=== PATIENT | male | born 1985 | race Caucasian/White ===

== ENCOUNTER 2019-02-06 19:21 | Outpatient (REF) | payer MEDICAID, SELFPAY ==
[2019-02-12 13:37] LABS: Cocaine Negative ng/mL (Cutoff: 50)
== END 2019-02-06 19:41 ==
LOC: NCHCN 19:21
PROVIDERS: PCP Nurse Practitioner Adult Health; Visit Provider Family Medicine
DX: F11.20 Opioid dependence, uncomplicated (principal)
CPT/HCPCS: 80353

== ENCOUNTER 2019-02-27 10:24 | Outpatient (REF) | payer MEDICAID, SELFPAY ==
[2019-03-03 10:59] LABS: Cocaine 67 ng/mL (Cutoff: 50); Cocaine Interpretation Positive.
== END 2019-02-27 10:44 ==
LOC: NCHCN 10:24
PROVIDERS: PCP Family Medicine; Visit Provider Family Medicine
DX: F11.20 Opioid dependence, uncomplicated (principal)
CPT/HCPCS: 80353